=== PATIENT | female | born 1995 | race Caucasian/White ===

== ENCOUNTER 2017-02-21 10:31 | Emergency (ER) | payer MEDICAID ==
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
== END 2017-02-21 12:30 | disposition home or self-care (01) ==
LOC: ER 10:31
DX: O9A.212 Injury, poisoning and certain other consequences of external causes complicating pregnancy, second trimester (principal); F17.200 Nicotine dependence, unspecified, uncomplicated; Z3A.25 25 weeks gestation of pregnancy
CPT/HCPCS: 76801-TC; Z7502